=== PATIENT | male | born 1955 | race Caucasian/White ===

== ENCOUNTER 2020-03-14 12:15 | Outpatient (NON) | payer BC, SELFPAY ==
[2020-03-15 20:05] LABS: SARS-CoV-2 RNA PCR Positive
== END 2020-03-14 12:16 ==
PROVIDERS: PCP Family Medicine Adolescent Medicine; Visit Provider Family Medicine Adolescent Medicine
DX: U07.1 COVID-19 (principal)
CPT/HCPCS: 87635; C9803; U0003

== ENCOUNTER 2020-09-06 12:27 | Outpatient (CLI) | payer BC, SELFPAY ==
--- NOTE | ~2020-09-06 | US_ITS ---
EXAMINATION: US venous doppler [facility] EXAM DATE: 09/06/2020 13:06 INDICATION: Left lower extremity pain. TECHNIQUE: Multiple grayscale, color flow and Doppler images of the left lower extremity deep venous system were obtained and reviewed. Comparison is made to prior examination from 12/31/2018. FINDINGS: The left common femoral, femoral and profunda veins demonstrate normal color flow, respirat ory variation, augmentation and compressibility. Compressibility, color flow confirmed within the le ft popliteal, posterior tibial, peroneal, and greater saphenous veins. IMPRESSION: 1. No left lower extremity deep venous thrombosis. Reviewed, dictated and finalized at location B.
== END 2020-09-06 12:28 | disposition home or self-care (01) ==
PROVIDERS: PCP Family Medicine Adolescent Medicine; Visit Provider Family Medicine Adolescent Medicine
DX: M79.662 Pain in left lower leg (principal)
CPT/HCPCS: 93971

== ENCOUNTER 2022-02-10 10:20 | Outpatient (CLI) | payer MEDICARE, SELFPAY ==
--- NOTE | ~2022-02-10 | US_ITS ---
EXAMINATION: US soft tissue head and neck DATE: 02/10/2022 10:56 INDICATION: Localized enlarged lymph nodes. Right neck lump, tenderness, and fever. TECHNIQUE: Multiple grayscale and Doppler ultrasound images of the neck were obtained. COMPARISON: None FINDINGS: In the right submandibular gland, there is a 2.0 x 2.2 x 1.6 cm predominantly cystic mass w ith peripheral low level echoes. The right parotid gland is unremarkable. IMPRESSION: 1. 2.2 cm cystic mass in right submandibular gland. The differential diagnosis includes benign mixed tumor, Warthin tumor, abscess, and less likely primary malignancy. Reviewed, dictated and finalized at location A. PREVENTION ENGINEER IMPRESSION: 1. 2.2 cm cystic mass in right submandibular gland. The differential diagnosis includes benign mixed tumor, Warthin tumor, abscess, and less likely primary ma lignancy.
== END 2022-02-10 10:21 | disposition home or self-care (01) ==
PROVIDERS: PCP Family Medicine Adolescent Medicine; Visit Provider Physician Assistant
DX: R59.0 Localized enlarged lymph nodes (principal)
CPT/HCPCS: 76536

== ENCOUNTER 2023-12-17 01:57 | Day surgery (SDC) | payer MEDICARE, SELFPAY ==
[2023-08-10 15:24] VITALS: BMI 32.1
--- NOTE | 2023-08-10 15:44 | PC.NURSE ---
Spoke with patient and spouse regarding medication Eliquis. Pt. verbalizes understanding that the last dose of Eliquis is to be taken on 08/15/2023 and the Endoscopist will instruct them when to restart after the procedure.
--- NOTE | 2023-08-18 09:36 | SUR.PREOP ---
Patients Shoshana called this morning. She said that they forgot and Roman took his eliquis yesterday. I spoke with Dr Ramos and we informed the patient that it was his choice to continue with procedure or not. Patient was made aware and verbalized understanding that Richard may not be able to remove any polyps today and that he may have to repeat the procedure at a later date when eliquis was held appropriately.
--- NOTE | 2023-08-18 13:27 | SUR.PREOP ---
pt had called in earlier today to report he had accidentally taken his eliquis, dr langley was aware and wanted to let patient know if polyps were found, due to risk of bleeding would probably bring him back for polyp removal. at that time patient was agreeable. pt then registered and when brought back to preop area, pt and had concerns that there would be a cost to coming back for second procedure. also stated that if he has to prep again, it would just be easier to come back and have the diagnostic procedure done at the same time. dr langley did come and speak with patient and , they voiced understanding of his concerns with bleeding. they would prefer to come back for the procedure. dr langley currently has an opening for september 28 at 1400, will call dr langleys office once they get home and reschedule procedure.
[2023-12-09 14:53] VITALS: BMI 32.1
[2023-12-09 15:58] VITALS: BMI 32.1
--- NOTE | 2023-12-09 16:13 | PC.NURSE ---
Spoke with _PATIENT AND SPOUSE_ regarding medication _ELIQUIS_. Pt. AND SPOUSE verbalizes understanding that the last dose of _ELIQUIS_ is to be taken on _12/14/2023__ and the Endoscopist will instruct them when to restart after the procedure.
[2023-12-17 06:52] VITALS: BP 120/77; PULSE 54; RESP 20; TEMP 36.3; O2SAT 99
[2023-12-17] MEDS: LACTATED RINGERS 1,000 ML 150 ML IV CONT (07:02)
--- NOTE | 2023-12-17 07:16 | WPDANESEPPF ---
Anes - Initial Pre Proc Eval Procedure: Operation Date: 12/17/23 08:00 Proposed Procedures p Screening Colonoscopy - Sanya Ramos DO Operation Date: 12/17/23 08:00 Proposed Procedures p Screening Colonoscopy - Sanya Ramos DO Date/Time: 12/17/23 07:16 Surgeon: Sanya Ramos DO Pre Op Diagnosis: Screening for malignant neoplasm of colon Patient Data Age: 68 Gender: M Height: 1.8 m Weight: 101.6 kg Last Vital Signs Temp 36.3 C L 12/17/23 06:52 Pulse 54 L 12/17/23 06:52 Resp 20 12/17/23 06:52 BP 120/77 12/17/23 06:52 Pulse Ox 99 12/17/23 06:52 O2 Del Method Room Air 12/17/23 06:52 Allergies Allergy/AdvReac Type Severity Reaction Status Date / Time No Known Allergies Allergy Verified 12/17/23 06:47 Home Medications Medication Instructions Recorded Confirmed Type apixaban 2.5 mg tablet (Eliquis) 2.5 mg PO BID 07/11/21 12/17/23 History multivitamin 1 tablet PO DAILY 02/20/22 12/17/23 History magnesium aspartate HCl 400 mg PO BID 08/10/23 12/17/23 History lisinopril 20 mg tablet 20 mg PO DAILY #90 tabs 09/28/23 12/17/23 Rx calcium 1,200 mg PO BID 12/09/23 12/17/23 History cholecalciferol (vitamin D3) 125 125 mcg PO DAILY 12/09/23 12/17/23 History mcg (5,000 unit) tablet (Vitamin D3) Patient hx anesthesia problems: none Family hx anesthesia problems: none Results Review: All pre-operative results and documents have been reviewed as part of the pre-operative evaluation. [facility] Past Medical History Medical History Abnormal colonoscopy 03/22 3 polyps History of DVT (deep vein thrombosis) 2016 History of prostate cancer (2019) Surgical History Surgical History History of cholecystectomy 2014 History of prostatectomy 2019 History of total right knee replacement 2017 Family History Family History Mother Hypertension Breast cancer Father Hypertension Heart disease Malignant neoplasm of prostate Grandparent Diabetes mellitus Other Cancer Other Cancer Social History Social History Years smoked: 20 Smoking status: Never smoker Tobacco type: cigarettes and cigars Second hand tobacco smoke exposure: No Alcohol intake: current Drinks per week: 28 Alcohol use details: BEERS Substance use: never Substance use type: does not use Living arrangements: with family Occupation/Education: retired Gender identity (if verbalized by the patient): Male Sexual Orientation (if Verbalized by the Patient): Straight or Heterosexual Spiritual care concerns: No Agree to blood products: Yes Anes - Eval Final PreProcedure Day of Procedure 12/17/23 07:16 Patient weight: overweight Heart: regular rate and rhythm Lungs: clear to auscultation Airway: Mallampati scale class II Neurological: alert and oriented Last oral intake: >/= 8 hours ASA classification: III Emergent: no Anesthetic plan: proceed Anesthesia type and monitoring: general GIVS and standard monitoring Results Review: All pre-operative results and documents have been reviewed as part of the pre-operative evaluation. Informed Consent: The patient's anesthetic plan and its attendant risks and benefits were discussed with the patient/family/POA. Questions were solicited and answers provided to the satisfaction of the patient/family/POA.
--- NOTE | 2023-12-17 07:49 | PM.IMHP ---
H&P: HPI History of Present Illness Date/Time: 12/17/23 07:49 Chief Complaint: history of colon polyps Narrative: this is a 68-year-old man who presents for colonoscopy. His last colonoscopy was about 5 years ago. polyps were found at that time. He denies any first-degree relatives with family history of colon cancer. He denies any hematochezia or melena. He is on Eliquis and stop this 2 days ago. Review of Systems Review of Systems: All systems reviewed & are unremarkable except as noted in HPI and below Constitutional: Constitutional: Denies chills, Denies fever(s), Denies headache(s) and Denies weight loss Eyes: Eyes: Denies change in vision ENT: Denies dizziness, Denies headache(s), Denies neck mass and Denies throat swelling Cardiovascular: Cardiovascular: Denies chest pain, Denies lightheadedness and Denies dyspnea Respiratory: Respiratory: Denies cough, Denies dyspnea and Denies wheezing Gastrointestinal: Gastrointestinal: Denies abdominal pain, Denies change in bowel habits, Denies nausea and Denies vomiting Genitourinary: Genitourinary: Denies hematuria and Denies dysuria Musculoskeletal: Musculoskeletal: Reports as per HPI Integumentary/Breasts: Skin/Breast: Reports as per HPI Neurologic: Denies dizziness and Denies headache(s) Allergic/Immunologic: Allergic/Immunologic: Denies throat swelling and Denies wheezing PMFSH Past Medical History Medical History Abnormal colonoscopy 03/22 3 polyps History of DVT (deep vein thrombosis) 2016 History of prostate cancer (2019) Surgical History Surgical History History of cholecystectomy 2014 History of prostatectomy 2019 History of total right knee replacement 2017 Family History Family History Mother Hypertension Breast cancer Father Hypertension Heart disease Malignant neoplasm of prostate Grandparent Diabetes mellitus Other Cancer Other Cancer Social History Social History Years smoked: 20 Smoking status: Never smoker Tobacco type: cigarettes and cigars Second hand tobacco smoke exposure: No Alcohol intake: current Drinks per week: 28 Alcohol use details: BEERS Substance use: never Substance use type: does not use Living arrangements: with family Occupation/Education: retired Gender identity (if verbalized by the patient): Male Sexual Orientation (if Verbalized by the Patient): Straight or Heterosexual Spiritual care concerns: No Agree to blood products: Yes Meds Home Medications and Allergies Home Medications Medication Instructions Recorded Confirmed Type apixaban 2.5 mg tablet (Eliquis) 2.5 mg PO BID 07/11/21 12/17/23 History multivitamin 1 tablet PO DAILY 02/20/22 12/17/23 History magnesium aspartate HCl 400 mg PO BID 08/10/23 12/17/23 History lisinopril 20 mg tablet 20 mg PO DAILY #90 tabs 09/28/23 12/17/23 Rx calcium 1,200 mg PO BID 12/09/23 12/17/23 History cholecalciferol (vitamin D3) 125 125 mcg PO DAILY 12/09/23 12/17/23 History mcg (5,000 unit) tablet (Vitamin D3) Allergies Allergy/AdvReac Type Severity Reaction Status Date / Time No Known Allergies Allergy Verified 12/17/23 06:47 Vital Signs Vital Signs - 24 hr 12/17/23 06:52 Temperature 36.3 C L Pulse Rate 54 L Respiratory Rate 20 Blood Pressure 120/77 Pulse Oximetry 99 Oxygen Delivery Room Air Exam Const: General: no acute distress and alert Orientation/consciousness: patient oriented x3 HENMT: Head: normocephalic and atraumatic Ears: hearing grossly normal bilaterally Face/Nose/Sinus: Normal nares present Mouth: Yes Normal oral and palatal mucosa present Eyes: Periorbital: periorbital findings normal Sclera: sclerae normal EOM: EOMs intact lisa
[2023-12-17 08:32] VITALS: BP 111/68; PULSE 50; RESP 12; O2SAT 98
[2023-12-17 08:42] VITALS: BP 103/61; PULSE 48; RESP 15; O2SAT 98
--- NOTE | 2023-12-17 08:44 | SUR.PHASEII ---
Clarified eliquis restart date with Dr. Ramos. Per MD, patient to restart eliquis 12/18. Patient/family notified and aware.
[2023-12-17 08:52] VITALS: BP 119/71; PULSE 56; RESP 23; O2SAT 100
== END 2023-12-17 09:05 | disposition home or self-care (01) ==
PROVIDERS: PCP Family Medicine Adolescent Medicine; Visit Provider Surgery
PROC: 0DJD8ZZ Inspection of Lower Intestinal Tract, Via Natural or Artificial Opening Endoscopic (ICD-10-PCS; CPT 45378; principal; 2023-12-17 08:00)
DX: Z12.11 Encounter for screening for malignant neoplasm of colon (principal); D12.3 Benign neoplasm of transverse colon; D12.5 Benign neoplasm of sigmoid colon; K57.30 Diverticulosis of large intestine without perforation or abscess without bleeding; Z79.01 Long term (current) use of anticoagulants; Z98.890 Other specified postprocedural states; Z96.651 Presence of right artificial knee joint; Z90.49 Acquired absence of other specified parts of digestive tract; Z85.46 Personal history of malignant neoplasm of prostate; Z86.718 Personal history of other venous thrombosis and embolism; Z80.3 Family history of malignant neoplasm of breast; Z80.42 Family history of malignant neoplasm of prostate; Z82.49 Family history of ischemic heart disease and other diseases of the circulatory system
CPT/HCPCS: 45380; 88305; 99211; G0463; J2704; J7120

== ENCOUNTER 2024-08-18 11:21 | Outpatient (CLI) | payer MEDICARE, SELFPAY ==
--- NOTE | ~2024-08-18 | US_ITS ---
EXAMINATION: US venous doppler [facility] DATE: 08/18/2024 11:59 INDICATION: Left lower leg pain TECHNIQUE: Grayscale ultrasound images without and with compression and Doppler ultrasound images of the left lower extremity veins were obtained. COMPARISON: None. FINDINGS: The visualized portions of left common femoral vein, profunda (deep) femoral vein, femoral vein, popl iteal vein, peroneal veins, posterior tibial veins, gastrocnemius vein and greater saphenous vein out flow are patent. IMPRESSION: 1. No deep venous thrombosis in the left lower limb. Reviewed, dictated and finalized at location A.
--- OUTSIDE RECORDS SUMMARY | 2024-08-18 11:25 | XMS_ITS ---
Author Organization [facility] al Address [address] [place] [address] Care Team Providers Care Senior Energy Analyst Name Role Phone Angel La MD Primary Care Prov ider Active Problems Problem Noted Date Diagnosed Date Primary osteoarthritis of left knee 06/02/2024 Alteration in skin integrity related to surgical incision 12/18/2022 Osteoarthritis of left knee, unspecified osteoarthritis type 07/08/2022 Deep vein thrombosis (DVT) of lower extremity Current use of correction anticoagulation 021 Prostate cancer 05/24/2019 Overview (05/24/2019): Added automatically from request for surgery [id number] History of knee surgery 06/17/2016 Medication therapy continued 03/26/2016 DVT (deep venous thrombosis) 01/23/2016 Knee pain 02/05/2015 Osteoarthritis of knee 09/05/2010 Current Treatment and Therapy Plans No current plan information found. Past Treatment and Therapy Plans No past plan information found. Lifetime Dose Tracking * Chemical Lifetime Dose Automatic Entry Manual Entr y Fluoro Time 1.6 minutes 1.6 minutes 0 minutes Air kerma at the reference point (Ka,r) 187.1 mGy 1 87.1 mGy 0 mGy DLP 1,912 mGycm 1,912 mGycm 0 mGycm
--- OUTSIDE RECORDS SUMMARY | 2024-08-18 11:25 | XMS_ITS | Encounter Summary ---
Author Organization [facility] Address [address] [place] [address] Phone Care Team Providers Care Carrier Blower Name Role Phone Angel La MD Primary Care Prov ider Encounter Details Date Type Department Care Team (Latest Contact Info) Description 09/26/2016 Orders Only [facility] CONVERSION Scanning, Provider Social History Tobacco Use Types Packs/Day Years Used Date Smoking Tobacco: Never Assessed Sex and Gender Information Value Date Recorded Sex Assigned at Not on file Legal Sex Male 9:30 AM FINGERPRINTER Gender Identity Male 06/14/2019 9:44 AM CDT Sexual Orientation Straight 06/14/2019 9: 44 AM CDT documented as of this encounter Plan of Treatment Not on file documented as of this encounter Procedures Procedure Name Priority Date/Time Associated Diagnosis Comments VASCULAR LABORATORY REPORT 09/26/2016 1:20 AM CDT documented in this encounter Results * VASCULAR LABORATORY REPORT (09/26/2016 1:20 AM CDT) Anatomical Region Laterality Modality Ultrasound us Provider Scanning CV VASCULAR PROCEDURES Final R esult documented in this encounter Visit Diagnoses Not on filedocumented in this encounter Care Teams Carrier Blower Relationship Specialty Start Date End Date Angel La MD [address] [place] [address] PCP - General 05/26/16 documented as of this encounter
--- OUTSIDE RECORDS SUMMARY | 2024-08-18 11:25 | XMS_ITS | Encounter Summary ---
Author Organization [facility] Address [address] [place] [address] Phone Care Team Providers Care Small Business Representative Name Role Phone Angel La MD Primary Care Prov ider Encounter Details Date Type Department Care Team (Latest Contact Info) Description 02/20/2017 Orders Only [facility] CONVERSION Scanning, Provider Social History Tobacco Use Types Packs/Day Years Used Date Smoking Tobacco: Former Sex and Gender Information Value Date Recorded Sex Assigned at Not on file Legal Sex Male 9:30 AM PLASTICS DESIGN ENGINEER Gender Identity Male 06/14/2019 9:44 AM CDT Sexual Orientation Straight 06/14/2019 9: 44 AM CDT documented as of this encounter Plan of Treatment Not on file documented as of this encounter Procedures Procedure Name Priority Date/Time Associated Diagnosis Comments VASCULAR LABORATORY REPORT 02/20/2017 12:42 PM PLASTICS DESIGN ENGINEER documented in this encounter Results * VASCULAR LABORATORY REPORT (02/20/2017 12:42 PM PLASTICS DESIGN ENGINEER) Anatomical Region Laterality Modality Ultrasound us Provider Scanning CV VASCULAR PROCEDURES Final R esult documented in this encounter Visit Diagnoses Not on filedocumented in this encounter Care Teams Small Business Representative Relationship Specialty Start Date End Date Angel La MD [address] [place] [id number] PCP - General 05/26/16 documented as of this encounter
--- OUTSIDE RECORDS SUMMARY | 2024-08-18 11:26 | XMS_ITS | Clinical Summary ---
Author Organization [facility] Address [address], [address] [address] Phone Care Team Providers Care Sample Tester Name Role Phone Angel La MD Primary Care Provider + Jamil Zuniga MD Unavailable [phone] Medications polyethylene glycol (MIRALAX) Powder Mix the entire bottle with 64 oz of a clear liquid. Use as directed by the office for colonoscopy prep. 255 g 7 Active Immunizations Immunization Administration Dates Next Due Covid-19, Mrna, Lnp-s, PF, 1 00 mcg/0.5 mL Dose (Moderna) 02/08/2021 Social History Tobacco Use Types Packs/Day Years Used Date Smoking Tobacco: Never Assessed Sex and Gender Information Value Date Recorded Sex Assigned at Not on file Legal Sex Male 4:45 PM ACCOUNT AUDITOR Gender Identity Not on file Sexual Orientation Not on file Plan of Treatment Health Maintenance Due Date Last Done Comments Hepatitis C Virus (HCV) Screening 1955 TdaP Immunization 1955 Cologuard 02/02/2006 Immunochemical Fecal Occult Blood 02/02/2006 Pneumococcal Immunization (5 0+ years) (1 of 1 - PCV) 02/02/2006 Zoster Immunization (1 of 2) 02/02/2006 Colonoscopy 03/17/2020 03/17/2017 Colorectal Cancer Screening 03/17/2020 Influenza Immunization (#1) 2023 SARS-COV-2 Immunization ( season) 2023 02/08/2021, 06/12/2020, 05/15/2020 Respiratory Syncytial Virus (RSV) Immunization (Adult) (1 - 1-dose 75+ series) 02/02/2031 03/17/2017 Hepatitis B Immunization Aged Out No longer eligible based on patient's age to complete this topic Meningococcal Immunization (ACWY) Aged Out No longer eligible b ased on patient's age to complete this topic Rotavirus Immunization Aged Out No lo nger eligible based on patient's age to complete this topic Procedures Procedure Name Priority Date/Time Associated Diagnosis Comments COLONOSCOPY Routine 03/17/2017 from Last 3 Months or Most Recently Relevant to Health Maintenance Results * COLONOSCOPY (03/17/2017) Jamil Zuniga MD PROCEDURE/MINOR SURGICA L ORDERABLES Final Result from Last 3 Months or Most Recently Relevant to Health Maintenance Insurance [facility] Care Teams Sample Tester Relationship Specialty Start Date End Date Angel La MD [address] [place] [address] PCP - General Family Medicine 02/20/17 RagJamil claudio MD [address] [place] [address] Consulting Physician Gastroenterology 04/02/17
--- OUTSIDE RECORDS SUMMARY | 2024-08-18 11:26 | XMS_ITS | Encounter Summary ---
Author Organization [facility] Address [address] [place] [address] Phone Care Team Providers Care Leather Stamper Name Role Phone Angel La MD Primary Care Prov ider Encounter Details Date Type Department Care Team (Latest Contact Info) Description 07/20/2017 Orders Only [facility] CONVERSION Scanning, Provider Social History Tobacco Use Types Packs/Day Years Used Date Smoking Tobacco: Former Sex and Gender Information Value Date Recorded Sex Assigned at Not on file Legal Sex Male 9:30 AM ENGRAVER BLOCK Gender Identity Male 06/14/2019 9:44 AM CDT Sexual Orientation Straight 06/14/2019 9: 44 AM CDT documented as of this encounter Plan of Treatment Not on file documented as of this encounter Procedures Procedure Name Priority Date/Time Associated Diagnosis Comments VASCULAR LABORATORY REPORT 07/20/2017 10:42 AM CDT documented in this encounter Results * VASCULAR LABORATORY REPORT (07/20/2017 10:42 AM CDT) Anatomical Region Laterality Modality Ultrasound us Provider Scanning CV VASCULAR PROCEDURES Final R esult documented in this encounter Visit Diagnoses Not on filedocumented in this encounter Care Teams Leather Stamper Relationship Specialty Start Date End Date Angel La MD [address] [place] [id number] PCP - General 05/26/16 documented as of this encounter
--- OUTSIDE RECORDS SUMMARY | 2024-08-18 11:26 | XMS_ITS | Referral Summary ---
Author Organization [facility] al Address [address] [place] [address] Care Team Providers Care Shark Biologist Name Role Phone Angel La MD Primary Care Prov ider Encounters Date Type Department Care Team Description 08/12/2024 Orders Only [facility] [address] [place] [address] Office [facility] [address] [place] [address] Giovani Sanchez MD Prophylactic antibiotic 07/27/2024 Telephone [facility] [address] [place] [address] Floor 6 [place] [address] Nadege Brewer RN 07/25/2024 3:30 PM CDT - 07/25/2024 11:59 PM CDT Hospital Encounter [facility] [address] [place] [address] [address] [place] [address] Aftercare following left knee joint replacement surgery Discharge Disposition: Discharge to home or self care 07/25/2024 3:50 PM CDT Office Visit [facility] [address] [place] [address] Office [address] [place] [phone] Giovani Sanchez MD Aftercare following left knee joint replacement surgery (Primary Dx) 07/04/2024 1:00 PM CDT - 07/04/2024 11:59 PM CDT Hospital Encounter [facility] [address] [place] [address] [address] [place] [address] Aftercare following left knee joint replacement surgery Discharge Disposition: Discharge to home or self care 07/04/2024 1:20 PM CDT Office Visit [facility] [address] [place] [address] Office Building [address] [place] [address] Giovani Sanchez MD Aftercare following left knee joint replacement surgery (Primary Dx); Surgical follow-up care 06/02/2024 12:02 PM MANAGER EDUCATION - 06/03/2024 10:00 AM [facility] Hospital Encounter [facility] [id number] [place] [address] Giovani Sanchez MD Primary osteoarthritis of left knee (Primary Dx); Chronic pain of left knee Discharge Disposition: Discharge to home or self care 06/02/2024 3:35 PM MANAGER EDUCATION - 06/02/2024 5:15 PM [facility] Surgery [facility] Operating Room [address] [place] [address] Giovani Sanchez MD ARTHROPLASTY TOTAL KNEE - DEPUY 06/02/2024 2:15 PM MANAGER EDUCATION Anesthesia Event [facility] Operating Room [address] [place] [address] Kian Burroughs MD Khodamoradi, Shahrdad, MD 05/31/2024 8:30 AM MANAGER EDUCATION Pre-Admission Testing [facility] ([facility]) [address] [place] [id number] Preoperative testing (Primary Dx); Primary osteoarthritis of left knee; Disorder of cartilage, unspecified 05/24/2024 Orders Only [facility] [address] [place] [address] Office [facility] [address] [place] [phone] Giovani Sanchez MD from Last 3 Months Allergies No known active allergies Medications lisinopriL (PRINIVIL,ZESTRIL ) 20 mg tabletIndications :hypertension Take 1 tablet (20 mg total) by mouth every morning 06/12/19 21 Active Eliquis 2.5 mg tabletIndications :Deep vein thrombosis (DVT) of lower extremity, unspecified chronicity, unspecified laterality, unspecified vein (HCC) TAKE 1 TABLET BY MOUTH EVERY 12 HOURS 60 tablet 11 01/03/20 21 Active Additional Information Patient taking differently: 2.5 mg oral 2 times daily, Indications: Venous Thrombosis, HX DVT LLE 2015, Informant: Self, Spouse/Significant Other, Reported on 06/02/2024 calcium carbonate (TUMS ORAL)Indications: dyspepsia Take 2 tablet/chew tab by mouth as needed (dyspepsia) Active cholecalciferol (VITAMIN D-3) 5,000 unit tabletIndications :Vitamin D Deficiency Take 1 tablet (5,000 Units total) by mouth every morning Active peg 400-propylene glycol (SYSTANE) 0.4-0.3 % ophthalmic solutionIndicatio ns:Dry Eye Administer 1 drop into both eyes 2 (two) times a day Active bismuth subsalicylate 525 mg/15 mL suspensionIndicat ions:GI UPSET Take 1 Capful by mouth as needed (GI UPSET) Active UNABLE TO FINDIndications:a nxiety Take 1 each by mouth as needed (Anxiety) Med Name: CBD oil Active acetaminophen (TYLENOL) 500 mg tablet Take 2 tablets (1,000 mg total) by mouth every 8 (eight) hours 90 tablet 06/03/19 25 Active senna-docusate (PERICOLACE) 8.6-50 mg Take 2 tablets by mouth 2 (two) times a day May increase to 4 tablets twice daily if needed. HOLD medication for diarrhea. 80 tablet 1 06/03/[address] (PROTONIX) 20 mg EC tablet Take 1 tablet (20 mg total) by mouth daily 30 tablet 06/03/19 25 Active meloxicam (MOBIC) 7.5 mg tablet Take 1 tablet (7.5 mg total) by mouth daily 30 tablet 06/03/19 25 Active oxyCODONE (ROXICODONE) 5 mg immediate release tabletIndications :Pain Take 1 tablet (5 mg total) by mouth every 4 (four) hours as needed for pain (breakthrough) 30 tablet 06/10/19 25 Active traMADoL (ULTRAM) 50 mg tabletIndications :Postoperative pain Take 1 tablet (50 mg total) by mouth every 8 (eight) hours as needed for pain 42 tablet 07/15/19 25 Active predniSONE (DELTASONE) 5 mg tabletIndications :Chronic pain of left knee Take 1 tablet (5 mg) by mouth daily 30 tablet 08/02/19 25 025 Active amoxicillin 500 mg tablet/capsuleInd ications:Prophyla xis, Medical TAKE 4 PILL 1 HOUR BEFORE DENTAL APPOINTMENT. 4 tablet/caps ule 2 08/13/19 25 Active amoxicillin 500 mg tablet/capsuleInd ications:Prophyla xis, Medical TAKE 4 PILL 1 HOUR BEFORE DENTAL APPOINTMENT. 4 tablet/caps ule 2 07/27/19 24 025 Discontinu ed(Reorder ) methylPREDNISolon e (MEDROL DOSEPACK) 4 mg Dosepack Take as directed on package 1 packet 07/26/19 25 025 Active Problems Problem Noted Date Diagnosed Date Primary osteoarthritis of left knee 06/02/2024 Alteration in skin integrity related to surgical incision 12/18/2022 Osteoarthritis of left knee, unspecified osteoarthritis type 07/08/2022 Deep vein thrombosis (DVT) of lower extremity Current use of meterman anticoagulation 021 Prostate cancer 05/24/2019 Overview (05/24/2019): Added automatically from request for surgery [id number] History of knee surgery 06/17/2016 Medication therapy continued 03/26/2016 DVT (deep venous thrombosis) 01/23/2016 Knee pain 02/05/2015 Osteoarthritis of knee 09/05/2010 Immunizations Immunization Administration Dates Next Due Influenza, Unspecified 12/14/2023 Moderna SARS-CoV-2 Monovalent Vaccination (12+ Y RS) 06/12/2020,05/15/2020 ZOSTER Recombinant 07/24/2023 Social History Tobacco Use Types Packs/Day Years Used Date Smoking Tobacco: Former Cigars 1 - 1994 Passive Smoke Exposure: Never Smokeless Tobacco: Former Chew Quit: 1988 Comments:1 cigar a day. Alcohol Use Standard Drinks/Week Comments Yes 21 (1 standard drink = 0.6 oz pu re alcohol) AUDIT-C Answer Date Recorded Q1: How often do you have a drink containing alcohol? 4 or more times a week 05/31/2024 Q2: How many drinks containi ng alcohol do you have on a typical day when you are drinking? 3 or 4 Q3: How often do you have si x or more drinks on one occasion? Monthly 05/31/2024 Personal Safety Answer Date Recorded Have you ever been in or are you currently in a harmful physical or emotional relationship or is someone making you feel afraid or unsafe? Denies 06/02/2024 Sex and Gender Information Value Date Recorded Sex Assigned at Not on file Legal Sex Male 9:30 AM MANAGER EDUCATION Gender Identity Male 06/14/2019 9:44 AM CDT Sexual Orientation Straight 06/14/2019 9: 44 AM CDT Last Filed Vital Signs Vital Sign Reading Time Taken Comments Blood Pressure 127/54 06/03/2024 7:43 AM MANAGER EDUCATION Pulse 62 06/03/2024 7:43 AM MANAGER EDUCATION Temperature 36.8 C (98.3 F) 06/03/2024 7:43 AM MANAGER EDUCATION Respiratory Rate 16 06/03/2024 7:43 AM MANAGER EDUCATION Oxygen Saturation 95% 06/03/2024 7:43 AM MANAGER EDUCATION Inhaled Oxygen Concentration - - Weight 108.5 kg (239 lb 3.2 oz) 06/02/2024 1:00 PM MANAGER EDUCATION Height 180.3 cm (5' 11 ) 06/02/2024 1:00 PM MANAGER EDUCATION Body Mass Index 33.36 06/02/2024 1:00 PM MANAGER EDUCATION Plan of Treatment Not on file Medical Devices Implanted Type Area Building Supervisor Device Identifier Shelf Expiration Date Model / Serial / Lot Knee Replacement Right: Knee [employer] Smartset Medium Viscosity Cement 40gm Bone Sterile 3122-040 - [id number] Implanted:Qty: 1 on 07/08/2022 by Giovani Sanchez MD at [facility] Left: Knee [employer] 12/05/2023 3122-040 / / [id number] [employer] Insert Tibial Knee Fixed Lm Posterior Stabilized Attune 7mm Size 7 Polyethylene [id number] - [id number] Implanted:Qty: 1 on 06/02/2024 at [facility] Left: Knee [employer] 04/05/2032 [id number] / / [id number] [employer] Smartset Medium Viscosity Cement 40gm Bone Gentamicin [id number] - [id number] Implanted:Qty: 1 on 06/02/2024 at [facility] Left: Knee [employer] 11/03/2025 [id number] / / [id number] [employer] Smartset Medium Viscosity Cement 40gm Bone Sterile 3122-040 - [id number] Implanted:Qty: 1 on 06/02/2024 at [facility] Left: Knee [employer] 10/03/2025 3122-040 / / [id number] [employer] Attune S+ Cement Fix Bearing Knee 8 Baseplate Tibial [id number] - [id number] Implanted:Qty: 1 on 06/02/2024 at [facility] Left: Knee [employer] 03/05/2034 [id number] / / [id number] [employer] Attune Cemented Cruciate Retaining Knee Left 7 Component Femoral [id number] - [id number] Implanted:Qty: 1 on 06/02/2024 at [facility] Left: Knee [employer] 11/03/2032 [id number] / / [id number] Explanted Type Area Building Supervisor Device Identifier Shelf Expiration Date Model / Serial / Lot [employer] 4mm 110mm Pin Fixation Sterile [id number] - [id number] Explanted:Qty: 1 on 07/08/2022 by Giovani Sanchez MD at [facility] Left: Knee [employer] [id number] 05/05/2027 [id number] / / [id number] Description:NOT AN IMPLANT, PROVISIONAL USE ONLY [employer] 4mm 140mm Knee Straight Pin Fixation Sterile [id number] - [id number] Explanted:Qty: 1 on 07/08/2022 at [facility] Left: Knee [employer] [id number] 04/25/2027 [id number] / / [id number] Description:NOT AN IMPLANT, PROVISIONAL USE ONLY [employer] Insert Peter Tibial X3 Onlay Size 5 X 8mm Unicompartmental Knee Strl 870135-4-T - [id number] Implanted:Qty: 1 on 07/08/2022 by Giovani Sanchez MD at [facility] Explanted:Qty: 1 on 06/02/2024 by Giovani Sanchez MD at [facility] Left: Knee [employer] [id number] 05/08/2027 465418-4- [id number] / / [id number] [employer] Cmpnt Fem 5 Std Knee Condyle Left Medial Right Lat [id number] - [id number] - [id number] Implanted:Qty: 1 on 07/08/2022 by Giovani Sanchez MD at [facility] Explanted:Qty: 1 on 06/02/2024 by Giovani Sancehz MD at [facility] Left: Knee [employer] [id number] 01/31/2027 [id number] / [id number] / [id number] [employer] Bsplt Tibial 5 Knee Left Medial Right Lat Mck System [id number] - [id number] - [id number] Implanted:Qty: 1 on 07/08/2022 by Giovani Sanchez MD at [facility] Explanted:Qty: 1 on 06/02/2024 by Giovani Sanchez MD at [facility] Left: Knee [employer] [id number] 03/27/2027 [id number] / [id number] Procedures Procedure Name Priority Date/Time Associated Diagnosis Comments XR KNEE LEFT 3 VIEWS Schedule Routine, Read Routine (OP Routine) 07/25/2024 3:59 PM CDT Aftercare following left knee joint replacement surgery XR KNEE LEFT 4 OR MORE VIEWS Schedule Routine, Read Routine (OP Routine) 07/04/2024 1:39 PM CDT Aftercare following left knee joint replacement surgery XR KNEE LEFT 1 OR 2 VIEWS ED Urgent/IP Urgent 06/02/2024 4:13 PM MANAGER EDUCATION PREPARE RBC Timed 06/02/2024 3:28 PM MANAGER EDUCATION ARTHROPLASTY TOTAL KNEE - DEPUY 06/02/2024 2:14 PM MANAGER EDUCATION Primary osteoarthritis of left knee PA AN PROCEDURE PLACEHOLDER Routine 06/02/2024 2:08 PM MANAGER EDUCATION PA AN PROCEDURE PLACEHOLDER Routine 06/02/2024 2:07 PM MANAGER EDUCATION PA AN PROCEDURE PLACEHOLDER Routine 06/02/2024 2:07 PM MANAGER EDUCATION PA AN PROCEDURE PLACEHOLDER Routine 06/02/2024 2:07 PM MANAGER EDUCATION PA AN PROCEDURE PLACEHOLDER Routine 06/02/2024 2:07 PM MANAGER EDUCATION CROSSMATCH STAT 06/02/2024 1:03 PM MANAGER EDUCATION ANTIBODY SCREEN STAT 06/02/2024 1:03 PM MANAGER EDUCATION ABO/RH STAT 06/02/2024 1:03 PM MANAGER EDUCATION TYPE AND SCREEN STAT 06/02/2024 1:03 PM MANAGER EDUCATION EGFR Routine 05/31/2024 10:03 AM MANAGER EDUCATION Primary osteoarthritis of left knee DIFFERENTIAL AUTO Routine 05/31/2024 10:03 AM MANAGER EDUCATION Preoperative testing VITAMIN D 25 HYDROXY Routine 05/31/2024 10:03 AM MANAGER EDUCATION Primary osteoarthritis of left knee Disorder of cartilage, unspecified COMPREHENSIVE METABOLIC PANEL Routine 05/31/2024 10:03 AM MANAGER EDUCATION Primary osteoarthritis of left knee CBC WITH AUTO DIFFERENTIAL Routine 05/31/2024 10:03 AM MANAGER EDUCATION Preoperative testing TYPE AND SCREEN 14 DAY Routine 05/31/2024 10:03 AM MANAGER EDUCATION Preoperative testing PSA SCREEN Routine 11/04/2022 7:55 AM CDT Malignant neoplasm of prostate (HCC) from Last 3 Months or Most Recently Relevant to Health Maintenance Results * XR Knee Left 3 Views (07/25/2024 3:59 PM CDT) Anatomical Region Laterality Modality Lower Extremities, Knee Left Computed Radiography 07/25/2024 4:09 PM CDT Impressions 07/25/2024 4:09 PM CDT 2 component left knee arthroplasty in near-anatomic position. Electronically signed by: Rodolfo Gomez M.D. Narrative 07/25/2024 4:09 PM CDT EXAMINATION: XR KNEE LEFT 3 VIEWS HISTORY: Left knee osteoarthritis FINDINGS: 3 views of the left knee were performed with comparison made to 07/04/2024. There is a 2 component knee arthroplasty in near-anatomic position. There is no periprosthetic lucency or fracture. There is an effusion and anterior soft tissue swelling. Procedure Note Rodolfo Gomez MD PhD - 07/25/2024 EXAMINATION: XR KNEE LEFT 3 VIEWS HISTORY: Left knee osteoarthritis FINDINGS: 3 views of the left knee were performed with comparison made to 07/04/2024. There is a 2 component knee arthroplasty in near-anatomic position. There is no periprosthetic lucency or fracture. There is an effusion and anterior soft tissue swelling. IMPRESSION: 2 component left knee arthroplasty in near-anatomic position. Electronically signed by: Rodolfo Gomez M.D. Giovani Sanchez MD IMG XR PROCEDURES Final R esult * XR Knee Left 4 or More Views (07/04/2024 1:39 PM CDT) Anatomical Region Laterality Modality Lower Extremities, Knee Left Computed Radiography 07/04/2024 2:52 PM CDT Impressions 07/04/2024 2:52 PM CDT 2 component left knee arthroplasty in unchanged, near-anatomic position with mild mechanical varus. Electronically signed by: Jhony Torres M.D. Narrative 07/04/2024 2:52 PM CDT EXAMINATION: XR KNEE LEFT 4 OR MORE VIEWS HISTORY: Left knee arthroplasty follow COMPARISON: 06/02/2023 FINDINGS: Again seen is a left pneumonia is seen in unchanged, near anatomic position. Soft tissue gas has resolved. No periprosthetic fracture component migration. There is diffuse soft tissue swelling and a knee effusion. On the right, there is a total knee arthropathy. Mechanical varus on the left. Neutral mechanical axis on the right. Procedure Note Jhony Torres MD - 07/04/2024 EXAMINATION: XR KNEE LEFT 4 OR MORE VIEWS HISTORY: Left knee arthroplasty follow COMPARISON: 06/02/2023 FINDINGS: Again seen is a left pneumonia is seen in unchanged, near anatomic position. Soft tissue gas has resolved. No periprosthetic fracture component migration. There is diffuse soft tissue swelling and a knee effusion. On the right, there is a total knee arthropathy. Mechanical varus on the left. Neutral mechanical axis on the right. IMPRESSION: 2 component left knee arthroplasty in unchanged, near-anatomic position with mild mechanical varus. Electronically signed by: Jhony Torres M.D. Giovani Sanchez MD IMG XR PROCEDURES Final R esult * XR Knee Left 1 or 2 View (06/02/2024 4:13 PM MANAGER EDUCATION) Anatomical Region Laterality Modality Lower Extremities, Knee Left Computed Radiography 06/02/2024 4:21 PM MANAGER EDUCATION Impressions 06/02/2024 4:21 PM MANAGER EDUCATION New two-component left knee arthroplasty in expected position. Electronically signed by: David Nair 06/02/2024 4:21 PM MANAGER EDUCATION EXAMINATION: XR KNEE LEFT 1 OR 2 VIEWS HISTORY: postoperative care COMPARISON: Radiographs 05/16/2024 FINDINGS: Interval postoperative changes of two-component knee arthroplasty placement. Intact hardware in expected position. Postoperative soft tissue and intra-articular gas. No displaced fracture. Procedure Note Edu Martin DO - 06/02/2024 EXAMINATION: XR KNEE LEFT 1 OR 2 VIEWS HISTORY: postoperative care COMPARISON: Radiographs 05/16/2024 FINDINGS: Interval postoperative changes of two-component knee arthroplasty placement. Intact hardware in expected position. Postoperative soft tissue and intra-articular gas. No displaced fracture. IMPRESSION: New two-component left knee arthroplasty in expected position. Electronically signed by: Edu Martin D.O. us Colin Abad MD IMG XR PROCEDURES Fi nal Result * Prepare RBC: 1 Units (06/02/2024 3:28 PM MANAGER EDUCATION) Units requested 1 Units requested Ready BRANDT GAGNON Blood 06/02/2024 3:28 PM MANAGER EDUCATION 06/02/2024 3:28 PM MANAGER EDUCATION Narrative BRANDT GAGNON - 06/02/2024 3:28 PM MANAGER EDUCATION Specify Procedure:->TKA revision Are special requirements needed? (All products are leukoreduced and CMV- safe)->No us Michele Begum NP BLOOD BANK PRODUCT ORDER FRENCH Final Result BRANDT HENNINGCH [id number] [facility]. [place] [address] * PA AN PROCEDURE PLACEHOLDER (06/02/2024 2:08 PM MANAGER EDUCATION) Narrative Kian Burroughs MD - 06/02/2024 2:08 PM MANAGER EDUCATION Kian Burroughs MD 06/02/2024 2:08 PM Peripheral Block Patient location during procedure: pre-op holding Reason for block: post-op pain management per surgeon request Ultrasound image in chart or stored: yes Block type: single shot Laterality: left Block type: vastus intermedius nerve block Procedure prep: Preprocedure checklist: patient identified, procedure contraindications assessed, site marked, procedure consent, surgical consent, IV checked, risks, benefits and alternatives discussed, monitors and equipment checked and timeout performed Patient position: supine Procedure performed while patient: sedate with meaningful contact Monitoring: oximetry, ECG and blood pressure Supplemental O2: nasal cannula Prep solution: chlorhexidine/alcohol PPE: provider hat/mask and sterile probe cover and gel Peripheral nerve block: Technique: ultrasound guided Needle type: short-bevel and echogenic Needle gauge: 21 G Needle length: 80 mm Injection assessment: injection made incrementally with constant monitoring, negative aspiration for heme, no paresthesias noted, normal resistance to injection and see flowsheet for medication details Assessment: Block success: full evaluation pending Events: patient tolerated procedure well with no complications us Kian Burroughs MD ANESTHESIA ORDERABLES Adeola l Result * PA AN PROCEDURE PLACEHOLDER (06/02/2024 2:07 PM MANAGER EDUCATION) Narrative Kian Burroughs MD - 06/02/2024 2:07 PM MANAGER EDUCATION Kian Burroughs MD 06/02/2024 2:07 PM Peripheral Block Patient location during procedure: pre-op holding Reason for block: post-op pain management per surgeon request Ultrasound image in chart or stored: yes Block type: single shot Laterality: left Block type: genicular nerve block Staff: Placed by: Anesthesiologist: Kian Burroughs MD Procedure prep: Preprocedure checklist: patient identified, procedure contraindications assessed, site marked, procedure consent, surgical consent, IV checked, risks, benefits and alternatives discussed, monitors and equipment checked and timeout performed Patient position: supine Procedure performed while patient: sedate with meaningful contact Monitoring: oximetry, ECG and blood pressure Supplemental O2: nasal cannula Prep solution: chlorhexidine/alcohol PPE: provider hat/mask and sterile probe cover and gel Peripheral nerve block: Technique: ultrasound guided Needle type: short-bevel and echogenic Needle gauge: 21 G Needle length: 80 mm Injection assessment: injection made incrementally with constant monitoring, negative aspiration for heme, no paresthesias noted, normal resistance to injection and see flowsheet for medication details Assessment: Block success: full evaluation pending Events: patient tolerated procedure well with no complications Additional comments: (Superior Medial, Superior Lateral, Inferior Medial genicular nerves) Kian Burroughs MD ANESTHESIA ORDERABLES Adeola l Result * PA AN PROCEDURE PLACEHOLDER (06/02/2024 2:07 PM MANAGER EDUCATION) Narrative Kian Burroughs MD - 06/02/2024 2:07 PM MANAGER EDUCATION Kian Burroughs MD 06/02/2024 2:07 PM Peripheral Block Patient location during procedure: pre-op holding Reason for block: post-op pain management per surgeon request Ultrasound image in chart or stored: yes Block type: single shot Laterality: left Block type: IPACK Staff: Placed by: Anesthesiologist: Kian Burroughs MD Procedure prep: Preprocedure checklist: patient identified, procedure contraindications assessed, site marked, procedure consent, surgical consent, IV checked, risks, benefits and alternatives discussed, monitors and equipment checked and timeout performed Patient position: supine Procedure performed while patient: sedate with meaningful contact Monitoring: oximetry, ECG and blood pressure Supplemental O2: nasal cannula Prep solution: chlorhexidine/alcohol PPE: provider hat/mask and sterile probe cover and gel Peripheral nerve block: Technique: ultrasound guided Needle type: short-bevel and echogenic Needle gauge: 21 G Needle length: 80 mm Injection assessment: injection made incrementally with constant monitoring, negative aspiration for heme, no paresthesias noted, normal resistance to injection and see flowsheet for medication details Assessment: Block success: full evaluation pending Events: patient tolerated procedure well with no complications Kian Burroughs MD ANESTHESIA ORDERABLES Adeola l Result * PA AN PROCEDURE PLACEHOLDER (06/02/2024 2:07 PM MANAGER EDUCATION) Narrative Kian Burroughs MD - 06/02/2024 2:07 PM MANAGER EDUCATION Kian Burroughs MD 06/02/2024 2:07 PM Peripheral Block Patient location during procedure: pre-op holding Reason for block: post-op pain management per surgeon request Ultrasound image in chart or stored: yes Block type: single shot Laterality: left Block type: saphenous nerve block - subsartorial approach Staff: Placed by: Anesthesiologist: Kian Burroughs MD Procedure prep: Preprocedure checklist: patient identified, procedure contraindications assessed, site marked, procedure consent, surgical consent, IV checked, risks, benefits and alternatives discussed, monitors and equipment checked and timeout performed Patient position: supine Procedure performed while patient: sedate with meaningful contact Monitoring: ECG, blood pressure and oximetry Supplemental O2: nasal cannula Prep solution: chlorhexidine/alcohol PPE: provider hat/mask and sterile probe cover and gel Peripheral nerve block: Technique: ultrasound guided Needle type: short-bevel and echogenic Needle gauge: 21 G Needle length: 80 mm Injection assessment: injection made incrementally with constant monitoring, local visualized surrounding nerve on ultrasound, negative aspiration for heme, no paresthesias noted, normal resistance to injection and see flowsheet for medication details Assessment: Block success: full evaluation pending Events: patient tolerated procedure well with no complications us Kian Burroughs MD ANESTHESIA ORDERABLES Adeola l Result * PA AN PROCEDURE PLACEHOLDER (06/02/2024 2:07 PM MANAGER EDUCATION) Narrative Kian Burroughs MD - 06/02/2024 2:07 PM MANAGER EDUCATION Kian Burroughs MD 06/02/2024 2:07 PM Spinal Block Patient location: pre-op holding Reason for block: primary anesthetic Staff: Placed by: Anesthesiologist: Kian Burroughs MD Procedure prep: Preprocedure checklist: patient identified, procedure contraindications assessed, site marked, procedure consent, surgical consent, IV checked, risks, benefits and alternatives discussed, monitors and equipment checked and timeout performed Patient position: sitting Procedure performed while patient: sedate with meaningful contact Monitoring: oximetry, blood pressure and ECG Supplemental O2: nasal cannula Prep solution: chlorhexadine/alcohol PPE: sterile gloves, provider hat/mask and sterile drape Skin infiltrated with lidocaine 1%: yes Spinal: Approach: midline Introducer used: yes Location: L3-4 Spinal injection: CSF demonstrated, no aspiration of heme and no paresthesias noted Number of attempts: 1 Spinal Needle: Needle type: Karla Tunde (Karla Tunde) Needle gauge: 24 G Needle length: 9 cm Assessment: Sensory deficit - left: full eval pending Sensory deficit - right: full eval pending Events: patient tolerated procedure well with no complications Kian Burroughs MD ANESTHESIA ORDERABLES Adeola l Result * ABO/Rh (06/02/2024 1:03 PM MANAGER EDUCATION) [facility] ABO/Rh A Positive Blood 06/02/2024 1:03 PM MANAGER EDUCATION 06/02/2024 1:11 PM MANAGER EDUCATION Narrative [facility] - 06/02/2024 3:25 PM MANAGER EDUCATION Has the patient had Daratumumab or Isatuximab in the past 6 months?->Unknown Michele Begum NP LAB BLOOD BANK TEST ORDCindy ANNA Final Result [facility] [id number] [facility]. [place] [address] * Crossmatch (06/02/2024 1:03 PM MANAGER EDUCATION) Crossmatch Compatible [facility] Unit number for crossmatch [id number] [facility] Blood 06/02/2024 1:03 PM MANAGER EDUCATION 06/02/2024 1:11 PM MANAGER EDUCATION Giovani Sanchez MD LAB BLOOD BANK TEST ORDER FRENCH Final Result Performing Organization Address [facility] de Phone Number [facility] [address] [facility] [place] [address] * Antibody screen (06/02/2024 1:03 PM MANAGER EDUCATION) Laura, indirect, Gel Interpretation Negative ABSC Blood 06/02/2024 1:03 PM MANAGER EDUCATION 06/02/2024 1:11 PM MANAGER EDUCATION Narrative [facility] - 06/02/2024 3:25 PM MANAGER EDUCATION Has the patient had Daratumumab or Isatuximab in the past 6 months?->Unknown Michele Begum NP LAB BLOOD BANK TEST ORDE ALEXIVAN Final Result Performing Organization Address [facility] de Phone Number [facility] [address] [address] [facility] [place] [address] * TYPE AND SCREEN 14 DAY (05/31/2024 10:03 AM MANAGER EDUCATION) ABO Rh A Positive Laura, indirect Negative [facility] Blood 05/31/2024 10:0 3 AM MANAGER EDUCATION 05/31/2024 10:40 AM MANAGER EDUCATION Narrative [facility] - 05/31/2024 11:38 AM MANAGER EDUCATION Has the patient had Daratumumab or Isatuximab in the past 6 months?->Unknown Is this test being ordered in advance for a procedure?->Yes Expected date of procedure:->06/02/24 Has the patient been transfused in the past 3 months?->No Michele Begum NP LAB BLOOD BANK TEST ORDE RABLES Final Result Performing Organization Address City[facility] Co de Phone Number [facility] Department [place] [address] * eGFR (05/31/2024 10:03 AM MANAGER EDUCATION) Pathologist [facility] eGFR >90 >=60 mL/min/1. 73 m2 Comment: Interpretive Data Reference Interval Normal >/= 90 mL/min/1.73m2 Mildly decreased* 60 - 89 mL/min/1.73m2 Mildly to moderately decreased 45 - 59 mL/min/1.73m2 Moderately to severely decreased 30 - 44 mL/min/1.73m2 Severely decreased 15 - 29 mL/min/1.73m2 Kidney Failure < 15 mL/min/1.73m2 *Relative to young adult level Estimated glomerular filtration rate is determined by the 2020 CKD-EPI equation recommended by the National Kidney Foundation (A Unifying Approach to GFR Estimation: Recommendations of the NKF-ASK Task Force on Reassessing the Inclusion of Race in Diagnosing Kidney Disease, JASN 2020). The CKD-EPI equation should not be used for patients with unstable renal function and has not been validated in children and those over 70. Current interpretive data was last reviewed 2021. Blood 05/31/2024 10:0 3 AM MANAGER EDUCATION 05/31/2024 10:48 AM MANAGER EDUCATION us Giovani Sanchez MD LAB BLOOD ORDERABLES Adeola young Result [facility] Department [place] [address] * Differential, auto (05/31/2024 10:03 AM MANAGER EDUCATION) Neutrophil abs 3.7 1.5 - 6.5 K/cumm Imm gran abs 0.0 0.0 - 0.1 K/cumm [facility] Lymphocyte abs 1.2 0.8 - 3.3 K/cumm [facility] Monocyte abs 0.4 0.2 - 0.8 K/cumm [facility] Eosinophil abs 0.2 0.0 - 0.5 K/cumm [facility] Basophil abs 0.1 0.0 - 0.1 K/cumm [facility] Neutrophil pct 66.9 % [facility] Comment: Interpretive Data Percent cell count reference ranges are not reported, since discordance with absolute values may lead to misinterpretation of CBC data. Current Interpretive Data was last revised on 2017. Imm gran pct 0.4 % [facility] Comment: Interpretive Data Percent cell count reference ranges are not reported, since discordance with absolute values may lead to misinterpretation of CBC data. Current Interpretive Data was last revised on 2017. Lymphocyte pct 22.3 % [facility] Comment: Interpretive Data Percent cell count reference ranges are not reported, since discordance with absolute values may lead to misinterpretation of CBC data. Current Interpretive Data was last revised on 2017. Monocyte pct 6.6 % [facility] Comment: Interpretive Data Percent cell count reference ranges are not reported, since discordance with absolute values may lead to misinterpretation of CBC data. Current Interpretive Data was last revised on 2017. Eosinophil pct 2.9 % [facility] Comment: Interpretive Data Percent cell count reference ranges are not reported, since discordance with absolute values may lead to misinterpretation of CBC data. Current Interpretive Data was last revised on 2017. Basophil pct 0.9 % [facility] Comment: Interpretive Data Percent cell count reference ranges are not reported, since discordance with absolute values may lead to misinterpretation of CBC data. Current Interpretive Data was last revised on 2017. [id number]|2024-08-18 11:26:00|2024-08-18 11:25:00|XMS_ITS|BKG DAEMON|External Medical Summaries|[id number]|" Clinical Summary Created on: August 18, 2024 Roman Fletcher : 1955 Sex: Male Author Organization [facility] Address [address] [place] [address] Care Team Providers Care Shark Biologist Name Role Phone Angel La MD Primary Care Prov ider Allergies No known active allergies Medications lisinopriL (PRINIVIL,ZESTRIL ) 20 mg tabletIndications :hypertension Take 1 tablet (20 mg total) by mouth every morning 06/12/19 21 Active Eliquis 2.5 mg tabletIndications :Deep vein thrombosis (DVT) of lower extremity, unspecified chronicity, unspecified laterality, unspecified vein (HCC) TAKE 1 TABLET BY MOUTH EVERY 12 HOURS 60 tablet 11 01/03/20 21 Active Additional Information Patient taking differently: 2.5 mg oral 2 times daily, Indications: Venous Thrombosis, HX DVT LLE 2015, Informant: Self, Spouse/Significant Other, Reported on 06/02/2024 calcium carbonate (TUMS ORAL)Indications: dyspepsia Take 2 tablet/chew tab by mouth as needed (dyspepsia) Active cholecalciferol (VITAMIN D-3) 5,000 unit tabletIndications :Vitamin D Deficiency Take 1 tablet (5,000 Units total) by mouth every morning Active peg 400-propylene glycol (SYSTANE) 0.4-0.3 % ophthalmic solutionIndicatio ns:Dry Eye Administer 1 drop into both eyes 2 (two) times a day Active bismuth subsalicylate 525 mg/15 mL suspensionIndicat ions:GI UPSET Take 1 Capful by mouth as needed (GI UPSET) Active UNABLE TO FINDIndications:a nxiety Take 1 each by mouth as needed (Anxiety) Med Name: CBD oil Active acetaminophen (TYLENOL) 500 mg tablet Take 2 tablets (1,000 mg total) by mouth every 8 (eight) hours 90 tablet 06/03/19 25 Active senna-docusate (PERICOLACE) 8.6-50 mg Take 2 tablets by mouth 2 (two) times a day May increase to 4 tablets twice daily if needed. HOLD medication for diarrhea. 80 tablet 1 06/03/[address] (PROTONIX) 20 mg EC tablet Take 1 tablet (20 mg total) by mouth daily 30 tablet 06/03/19 25 Active meloxicam (MOBIC) 7.5 mg tablet Take 1 tablet (7.5 mg total) by mouth daily 30 tablet 06/03/19 25 Active oxyCODONE (ROXICODONE) 5 mg immediate release tabletIndications :Pain Take 1 tablet (5 mg total) by mouth every 4 (four) hours as needed for pain (breakthrough) 30 tablet 06/10/19 25 Active traMADoL (ULTRAM) 50 mg tabletIndications :Postoperative pain Take 1 tablet (50 mg total) by mouth every 8 (eight) hours as needed for pain 42 tablet 07/15/19 25 Active predniSONE (DELTASONE) 5 mg tabletIndications :Chronic pain of left knee Take 1 tablet (5 mg) by mouth daily 30 tablet 08/02/19 25 025 Active amoxicillin 500 mg tablet/capsuleInd ications:Prophyla xis, Medical TAKE 4 PILL 1 HOUR BEFORE DENTAL APPOINTMENT. 4 tablet/caps ule 2 08/13/19 25 Active amoxicillin 500 mg tablet/capsuleInd ications:Prophyla xis, Medical TAKE 4 PILL 1 HOUR BEFORE DENTAL APPOINTMENT. 4 tablet/caps ule 2 07/27/19 24 025 Discontinu ed(Reorder ) methylPREDNISolon e (MEDROL DOSEPACK) 4 mg Dosepack Take as directed on package 1 packet 07/26/19 25 025 Active Problems Problem Noted Date Diagnosed Date Primary osteoarthritis of left knee 06/02/2024 Alteration in skin integrity related to surgical incision 12/18/2022 Osteoarthritis of left knee, unspecified osteoarthritis type 07/08/2022 Deep vein thrombosis (DVT) of lower extremity Current use of meterman anticoagulation 021 Prostate cancer 05/24/2019 Overview (05/24/2019): Added automatically from request for surgery [id number] History of knee surgery 06/17/2016 Medication therapy continued 03/26/2016 DVT (deep venous thrombosis) 01/23/2016 Knee pain 02/05/2015 Osteoarthritis of knee 09/05/2010 Encounters Date Type Department Care Team Description 08/12/2024 Orders Only [facility] [address] [place] [address] Medical Office Building [address] [place] [phone] Giovani Sanchez MD Prophylactic antibiotic 07/27/2024 Telephone [facility] [address] [facility] Floor 6 [place] [phone] Nadege Brewer RN 07/25/2024 3:50 PM CDT Office Visit [facility] [address] [place] [address] Office [facility] [address] [place] [address] Giovani Sanchez MD Aftercare following left knee joint replacement surgery (Primary Dx) 07/25/2024 3:30 PM CDT - 07/25/2024 11:59 PM CDT Hospital Encounter [facility] [address] [place] [address] [address] [place] [phone] Aftercare following left knee joint replacement surgery Discharge Disposition: Discharge to home or self care 07/04/2024 1:20 PM CDT Office Visit [facility] [address] [place] [address] Office [facility] [address] [place] [address] Giovani Sanchez MD Aftercare following left knee joint replacement surgery (Primary Dx); Surgical follow-up care 07/04/2024 1:00 PM CDT - 07/04/2024 11:59 PM CDT Hospital Encounter [facility] [address] [place] [address] [address] [place] [phone] Aftercare following left knee joint replacement surgery Discharge Disposition: Discharge to home or self care 06/02/2024 3:35 PM MANAGER EDUCATION - 06/02/2024 5:15 PM MANAGER EDUCATION Surgery [facility] Operating Room [address] [address] [address] Giovani Sanchez MD ARTHROPLASTY TOTAL KNEE - DEPUY 06/02/2024 2:15 PM MANAGER EDUCATION Anesthesia Event [facility] Operating Room [address] [address] [address] Kian Burroughs MD Khodamoradi, Shahrdad, MD 06/02/2024 12:02 PM MANAGER EDUCATION - 06/03/2024 10:00 AM MANAGER EDUCATION Hospital Encounter [facility] [address] [address] [address] [address] Giovani Sanchez MD Primary osteoarthritis of left knee (Primary Dx); Chronic pain of left knee Discharge Disposition: Discharge to home or self care 05/31/2024 8:30 AM MANAGER EDUCATION Pre-Admission Testing [facility] [address] [place] [id number] Preoperative testing (Primary Dx); Primary osteoarthritis of left knee; Disorder of cartilage, unspecified 05/24/2024 Orders Only [facility] [address] [facility] Medical Office Building [address] [place] [phone] Giovani Sanchez MD from Last 3 Months Immunizations Immunization Administration Dates Next Due Influenza, Unspecified 12/14/2023 Moderna SARS-CoV-2 Monovalent Vaccination (12+ Y RS) 06/12/2020,05/15/2020 ZOSTER Recombinant 07/24/2023 Surgical History Surgery Date Site/Laterality Comments CHOLECYSTECTOMY 04/06/2014 - 04/05/2015 PARTIAL KNEE ARTHROPLASTY 07/05/2022 - 08/03/2022 Left PROSTATECTOMY 05/07/2019 - 06/04/2019 TOTAL KNEE ARTHROPLASTY 04/06/2016 - 04/05/2017 Right COLONOSCOPY last one 2020 Medical History Medical History Date Comments Personal history of other di seases of the circulatory system History of hypertension - (A dded by TW Conv) Acute embolism and thrombosis of vein Blood clot in vein - (Added by TW Conv) Personal history of other en docrine, nutritional and metabolic disease History of hyperchol esterolemia - (Added by TW Conv) Personal history of other di seases of the musculoskeletal system and connective tissue History of gout - (Added by TW Conv) Clotting disorder Hypertension Family History Medical History Relation Name Comments Arthritis Father Family history of arthritis - (Added by TW Conv) Cancer Father Family history of malignant neoplasm - (Added by TW Conv) Heart disease Father Family history of cardiac disorder - (Added by TW Conv) Hypertension Father Family history of hypertension - (Added by TW Conv) Diabetes Maternal Grandmother Family history of diabetes mellitus - (Added by TW Conv) Arthritis Mother Family history of arthritis - (Added by TW Conv) Hypertension Mother Family history of hypertension - (Added by TW Conv) Anesthesia problems Neg Hx Relation Name Status Comments Father Maternal Grandmother Mother Social History Tobacco Use Types Packs/Day Years Used Date Smoking Tobacco: Former Cigars 1994 Passive Smoke Exposure: Never Smokeless Tobacco: Former Chew Quit: 1988 Comments:1 cigar a day. Alcohol Use Standard Drinks/Week Comments Yes 21 (1 standard drink = 0.6 oz pu re alcohol) AUDIT-C Answer Date Recorded Q1: How often do you have a drink containing alcohol? 4 or more times a week 05/31/2024 Q2: How many drinks containi ng alcohol do you have on a typical day when you are drinking? 3 or 4 Q3: How often do you have si x or more drinks on one occasion? Monthly 05/31/2024 Personal Safety Answer Date Recorded Have you ever been in or are you currently in a harmful physical or emotional relationship or is someone making you feel afraid or unsafe? Denies 06/02/2024 Sex and Gender Information Value Date Recorded Sex Assigned at Not on file Legal Sex Male 9:30 AM MANAGER EDUCATION Gender Identity Male 06/14/2019 9:44 AM CDT Sexual Orientation Straight 06/14/2019 9: 44 AM CDT Obstetrics History Last Filed Vital Signs Vital Sign Reading Time Taken Comments Blood Pressure 127/54 06/03/2024 7:43 AM MANAGER EDUCATION Pulse 62 06/03/2024 7:43 AM MANAGER EDUCATION Temperature 36.8 C (98.3 F) 06/03/2024 7:43 AM MANAGER EDUCATION Respiratory Rate 16 06/03/2024 7:43 AM MANAGER EDUCATION Oxygen Saturation 95% 06/03/2024 7:43 AM MANAGER EDUCATION Inhaled Oxygen Concentration - - Weight 108.5 kg (239 lb 3.2 oz) 06/02/2024 1:00 PM MANAGER EDUCATION Height 180.3 cm (5' 11 ) 06/02/2024 1:00 PM MANAGER EDUCATION Body Mass Index 33.36 06/02/2024 1:00 PM MANAGER EDUCATION Plan of Treatment Health Maintenance Due Date Last Done Comments Colon Cancer Screening-Colonoscopy 1955 Depression Screening 1955 Hepatitis C Screening 1955 DTaP/Tdap/Td Vaccine (1 - Tdap) 02/02/1967 Hepatitis B Screening 02/02/1974 Pneumococcal vaccine 65+ (1 of 1 - PCV) 02/02/2006 Abdominal Aortic Aneurysm (A AA) Screen 02/02/2021 Well Visit 65+ 02/02/2021 Covid-19 Vaccine (4 - 2023-2 5 season) 2023 02/08/2021, 06/12/2020, 05/15/2020 Prostate Cancer Screening-PSA 11/04/2024, 11/04/2021, 05/20/2021, Additional history exists Fall Risk Assessment 06/03/2025 06/03/2024 Zoster Vaccine Completed 10/14/2023, 07/24/2023 Influenza Vaccine Completed 12/14/2023 Medical Devices Implanted Type Area Building Supervisor Device Identifier Shelf Expiration Date Model / Serial / Lot Knee Replacement Right: Knee [employer] Smartset Medium Viscosity Cement 40gm Bone Sterile 3122-040 - [id number] Implanted:Qty: 1 on 07/08/2022 by Giovani Sanchez MD at [facility] Left: Knee [employer] 12/05/2023 3122-040 / / [id number] [employer] Insert Tibial Knee Fixed Lm Posterior Stabilized Attune 7mm Size 7 Polyethylene [id number] - [id number] Implanted:Qty: 1 on 06/02/2024 at [facility] Left: Knee [employer] 04/05/2032 [id number] / / [id number] [employer] Smartset Medium Viscosity Cement 40gm Bone Gentamicin [id number] - [id number] Implanted:Qty: 1 on 06/02/2024 at [facility] Left: Knee [employer] 11/03/2025 [id number] / / [id number] [employer] Smartset Medium Viscosity Cement 40gm Bone Sterile 3122-040 - [id number] Implanted:Qty: 1 on 06/02/2024 at [facility] Left: Knee [employer] 10/03/2025 3122-040 / / [id number] [employer] Attune S+ Cement Fix Bearing Knee 8 Baseplate Tibial [id number] - [id number] Implanted:Qty: 1 on 06/02/2024 at [facility] Left: Knee [employer] 03/05/2034 [id number] / / [id number] [employer] Attune Cemented Cruciate Retaining Knee Left 7 Component Femoral [id number] - [id number] Implanted:Qty: 1 on 06/02/2024 at [facility] Left: Knee [employer] 11/03/2032 [id number] / / [id number] Explanted Type Area Building Supervisor Device Identifier Shelf Expiration Date Model / Serial / Lot [employer] 4mm 110mm Pin Fixation Sterile [id number] - [id number] Explanted:Qty: 1 on 07/08/2022 by Giovani Sanchez MD at [facility] Left: Knee [employer] [id number] 05/05/2027 [id number] / / [id number] Description:NOT AN IMPLANT, PROVISIONAL USE ONLY [employer] 4mm 140mm Knee Straight Pin Fixation Sterile 560566 - [id number] Explanted:Qty: 1 on 07/08/2022 at [facility] Left: Knee [employer] [id number] 04/25/2027 [id number] / / [id number] Description:NOT AN IMPLANT, PROVISIONAL USE ONLY [employer] Insert Peter Tibial X3 Onlay Size 5 X 8mm Unicompartmental Knee Strl 695808-7-S - [id number] Implanted:Qty: 1 on 07/08/2022 by Giovani Sanchez MD at [facility] Explanted:Qty: 1 on 06/02/2024 by Giovani Sanchez MD at [facility] Left: Knee [employer] [id number] 05/08/2027 601067-3- E / / [id number] [employer] Cmpnt Fem 5 Std Knee Condyle Left Medial Right Lat [id number] - [id number] - [id number] Implanted:Qty: 1 on 07/08/2022 by Giovani Sanchez MD at [facility] Explanted:Qty: 1 on 06/02/2024 by Giovani Sanchez MD at [facility] Left: Knee [employer] [id number] 01/31/2027 [id number] / [id number] / [id number] [employer] Bsplt Tibial 5 Knee Left Medial Right Lat Mck System [id number] - [id number] - [id number] Implanted:Qty: 1 on 07/08/2022 by Giovani Sanchez MD at [facility] Explanted:Qty: 1 on 06/02/2024 by Giovani Sanchez MD at [facility] Left: Knee [employer] [id number] 03/27/2027 [id number] / [id number] / [id number] Procedures Procedure Name Priority Date/Time Associated Diagnosis Comments XR KNEE LEFT 3 VIEWS Schedule Routine, Read Routine (OP Routine) 07/25/2024 3:59 PM CDT Aftercare following left knee joint replacement surgery XR KNEE LEFT 4 OR MORE VIEWS Schedule Routine, Read Routine (OP Routine) 07/04/2024 1:39 PM CDT Aftercare following left knee joint replacement surgery XR KNEE LEFT 1 OR 2 VIEWS ED Urgent/IP Urgent 06/02/2024 4:13 PM MANAGER EDUCATION PREPARE RBC Timed 06/02/2024 3:28 PM MANAGER EDUCATION ARTHROPLASTY TOTAL KNEE - DEPUY 06/02/2024 2:14 PM MANAGER EDUCATION Primary osteoarthritis of left knee PA AN PROCEDURE PLACEHOLDER Routine 06/02/2024 2:08 PM MANAGER EDUCATION PA AN PROCEDURE PLACEHOLDER Routine 06/02/2024 2:07 PM MANAGER EDUCATION PA AN PROCEDURE PLACEHOLDER Routine 06/02/2024 2:07 PM MANAGER EDUCATION PA AN PROCEDURE PLACEHOLDER Routine 06/02/2024 2:07 PM MANAGER EDUCATION PA AN PROCEDURE PLACEHOLDER Routine 06/02/2024 2:07 PM MANAGER EDUCATION CROSSMATCH STAT 06/02/2024 1:03 PM MANAGER EDUCATION ANTIBODY SCREEN STAT 06/02/2024 1:03 PM MANAGER EDUCATION ABO/RH STAT 06/02/2024 1:03 PM MANAGER EDUCATION TYPE AND SCREEN STAT 06/02/2024 1:03 PM MANAGER EDUCATION EGFR Routine 05/31/2024 10:03 AM MANAGER EDUCATION Primary osteoarthritis of left knee DIFFERENTIAL AUTO Routine 05/31/2024 10:03 AM MANAGER EDUCATION Preoperative testing VITAMIN D 25 HYDROXY Routine 05/31/2024 10:03 AM MANAGER EDUCATION Primary osteoarthritis of left knee Disorder of cartilage, unspecified COMPREHENSIVE METABOLIC PANEL Routine 05/31/2024 10:03 AM MANAGER EDUCATION Primary osteoarthritis of left knee CBC WITH AUTO DIFFERENTIAL Routine 05/31/2024 10:03 AM MANAGER EDUCATION Preoperative testing TYPE AND SCREEN 14 DAY Routine 05/31/2024 10:03 AM MANAGER EDUCATION Preoperative testing PSA SCREEN Routine 11/04/2022 7:55 AM CDT Malignant neoplasm of prostate (HCC) from Last 3 Months or Most Recently Relevant to Health Maintenance Results * XR Knee Left 3 Views (07/25/2024 3:59 PM CDT) Anatomical Region Laterality Modality Lower Extremities, Knee Left Computed Radiography 07/25/2024 4:09 PM CDT Impressions 07/25/2024 4:09 PM CDT 2 component left knee arthroplasty in near-anatomic position. Electronically signed by: Rodolfo Gomez M.D. Narrative 07/25/2024 4:09 PM CDT EXAMINATION: XR KNEE LEFT 3 VIEWS HISTORY: Left knee osteoarthritis FINDINGS: 3 views of the left knee were performed with comparison made to 07/04/2024. There is a 2 component knee arthroplasty in near-anatomic position. There is no periprosthetic lucency or fracture. There is an effusion and anterior soft tissue swelling. Procedure Note Rodolfo Gomez MD PhD - 07/25/2024 EXAMINATION: XR KNEE LEFT 3 VIEWS HISTORY: Left knee osteoarthritis FINDINGS: 3 views of the left knee were performed with comparison made to 07/04/2024. There is a 2 component knee arthroplasty in near-anatomic position. There is no periprosthetic lucency or fracture. There is an effusion and anterior soft tissue swelling. IMPRESSION: 2 component left knee arthroplasty in near-anatomic position. Electronically signed by: Rodolfo Gomez M.D. Giovani Sanchez MD IMG XR PROCEDURES Final R esult * XR Knee Left 4 or More Views (07/04/2024 1:39 PM CDT) Anatomical Region Laterality Modality Lower Extremities, Knee Left Computed Radiography 07/04/2024 2:52 PM CDT Impressions 07/04/2024 2:52 PM CDT 2 component left knee arthroplasty in unchanged, near-anatomic position with mild mechanical varus. Electronically signed by: Jhony Torres M.D. Narrative 07/04/2024 2:52 PM CDT EXAMINATION: XR KNEE LEFT 4 OR MORE VIEWS HISTORY: Left knee arthroplasty follow COMPARISON: 06/02/2023 FINDINGS: Again seen is a left pneumonia is seen in unchanged, near anatomic position. Soft tissue gas has resolved. No periprosthetic fracture component migration. There is diffuse soft tissue swelling and a knee effusion. On the right, there is a total knee arthropathy. Mechanical varus on the left. Neutral mechanical axis on the right. Procedure Note Jhony Torres MD - 07/04/2024 EXAMINATION: XR KNEE LEFT 4 OR MORE VIEWS HISTORY: Left knee arthroplasty follow COMPARISON: 06/02/2023 FINDINGS: Again seen is a left pneumonia is seen in unchanged, near anatomic position. Soft tissue gas has resolved. No periprosthetic fracture component migration. There is diffuse soft tissue swelling and a knee effusion. On the right, there is a total knee arthropathy. Mechanical varus on the left. Neutral mechanical axis on the right. IMPRESSION: 2 component left knee arthroplasty in unchanged, near-anatomic position with mild mechanical varus. Electronically signed by: Jhony Torres M.D. Giovani Sanchez MD IMG XR PROCEDURES Final R esult * XR Knee Left 1 or 2 View (06/02/2024 4:13 PM MANAGER EDUCATION) Anatomical Region Laterality Modality Lower Extremities, Knee Left Computed Radiography 06/02/2024 4:21 PM MANAGER EDUCATION Impressions 06/02/2024 4:21 PM MANAGER EDUCATION New two-component left knee arthroplasty in expected position. Electronically signed by: Edu Martin D.O. Narrative 06/02/2024 4:21 PM MANAGER EDUCATION EXAMINATION: XR KNEE LEFT 1 OR 2 VIEWS HISTORY: postoperative care COMPARISON: Radiographs 05/16/2024 FINDINGS: Interval postoperative changes of two-component knee arthroplasty placement. Intact hardware in expected position. Postoperative soft tissue and intra-articular gas. No displaced fracture. Procedure Note Edu Martin, DO - 06/02/2024 EXAMINATION: XR KNEE LEFT 1 OR 2 VIEWS HISTORY: postoperative care COMPARISON: Radiographs 05/16/2024 FINDINGS: Interval postoperative changes of two-component knee arthroplasty placement. Intact hardware in expected position. Postoperative soft tissue and intra-articular gas. No displaced fracture. IMPRESSION: New two-component left knee arthroplasty in expected position. Electronically signed by: Edu Martin D.O. Colin Abad MD IMG XR PROCEDURES Fi nal Result * Prepare RBC: 1 Units (06/02/2024 3:28 PM MANAGER EDUCATION) Units requested 1 Units requested Ready [facility] Blood 06/02/2024 3:28 PM MANAGER EDUCATION 06/02/2024 3:28 PM MANAGER EDUCATION Narrative [facility] - 06/02/2024 3:28 PM MANAGER EDUCATION Specify Procedure:->TKA revision Are special requirements needed? (All products are leukoreduced and CMV- safe)->No Michele Begum NP BLOOD BANK PRODUCT ORDER FRENCH Final Result [facility] [id number] [facility] [address] * PA AN PROCEDURE PLACEHOLDER (06/02/2024 2:08 PM MANAGER EDUCATION) Kian Teresa MD - 06/02/2024 2:08 PM MANAGER EDUCATION Kian Burroughs MD 06/02/2024 2:08 PM Peripheral Block Patient location during procedure: pre-op holding Reason for block: post-op pain management per surgeon request Ultrasound image in chart or stored: yes Block type: single shot Laterality: left Block type: vastus intermedius nerve block Procedure prep: Preprocedure checklist: patient identified, procedure contraindications assessed, site marked, procedure consent, surgical consent, IV checked, risks, benefits and alternatives discussed, monitors and equipment checked and timeout performed Patient position: supine Procedure performed while patient: sedate with meaningful contact Monitoring: oximetry, ECG and blood pressure Supplemental O2: nasal cannula Prep solution: chlorhexidine/alcohol PPE: provider hat/mask and sterile probe cover and gel Peripheral nerve block: Technique: ultrasound guided Needle type: short-bevel and echogenic Needle gauge: 21 G Needle length: 80 mm Injection assessment: injection made incrementally with constant monitoring, negative aspiration for heme, no paresthesias noted, normal resistance to injection and see flowsheet for medication details Assessment: Block success: full evaluation pending Events: patient tolerated procedure well with no complications Result Replaced By [facility] us Kian Burroughs MD ANESTHESIA ORDERABLES Adeola l Result * PA AN PROCEDURE PLACEHOLDER (06/02/2024 2:07 PM MANAGER EDUCATION) Kian Teresa MD - 06/02/2024 2:07 PM MANAGER EDUCATION Kian Burroughs MD 06/02/2024 2:07 PM Peripheral Block Patient location during procedure: pre-op holding Reason for block: post-op pain management per surgeon request Ultrasound image in chart or stored: yes Block type: single shot Laterality: left Block type: genicular nerve block Staff: Placed by: Anesthesiologist: Kian Burroughs MD Procedure prep: Preprocedure checklist: patient identified, procedure contraindications assessed, site marked, procedure consent, surgical consent, IV checked, risks, benefits and alternatives discussed, monitors and equipment checked and timeout performed Patient position: supine Procedure performed while patient: sedate with meaningful contact Monitoring: oximetry, ECG and blood pressure Supplemental O2: nasal cannula Prep solution: chlorhexidine/alcohol PPE: provider hat/mask and sterile probe cover and gel Peripheral nerve block: Technique: ultrasound guided Needle type: short-bevel and echogenic Needle gauge: 21 G Needle length: 80 mm Injection assessment: injection made incrementally with constant monitoring, negative aspiration for heme, no paresthesias noted, normal resistance to injection and see flowsheet for medication details Assessment: Block success: full evaluation pending Events: patient tolerated procedure well with no complications Additional comments: (Superior Medial, Superior Lateral, Inferior Medial genicular nerves) Kian Burroughs MD ANESTHESIA ORDERABLES Adeola l Result * PA AN PROCEDURE PLACEHOLDER (06/02/2024 2:07 PM MANAGER EDUCATION) Narrative Kian Burroughs MD - 06/02/2024 2:07 PM MANAGER EDUCATION Kian Burroughs MD 06/02/2024 2:07 PM Peripheral Block Patient location during procedure: pre-op holding Reason for block: post-op pain management per surgeon request Ultrasound image in chart or stored: yes Block type: single shot Laterality: left Block type: IPACK Staff: Placed by: Anesthesiologist: Kian Burroughs MD Procedure prep: Preprocedure checklist: patient identified, procedure contraindications assessed, site marked, procedure consent, surgical consent, IV checked, risks, benefits and alternatives discussed, monitors and equipment checked and timeout performed Patient position: supine Procedure performed while patient: sedate with meaningful contact Monitoring: oximetry, ECG and blood pressure Supplemental O2: nasal cannula Prep solution: chlorhexidine/alcohol PPE: provider hat/mask and sterile probe cover and gel Peripheral nerve block: Technique: ultrasound guided Needle type: short-bevel and echogenic Needle gauge: 21 G Needle length: 80 mm Injection assessment: injection made incrementally with constant monitoring, negative aspiration for heme, no paresthesias noted, normal resistance to injection and see flowsheet for medication details Assessment: Block success: full evaluation pending Events: patient tolerated procedure well with no complications Result [facility] Kian Burroughs MD ANESTHESIA ORDERABLES Adeola l Result * PA AN PROCEDURE PLACEHOLDER (06/02/2024 2:07 PM MANAGER EDUCATION) Narrative Kian Burroughs MD - 06/02/2024 2:07 PM MANAGER EDUCATION Kian Burroughs MD 06/02/2024 2:07 PM Peripheral Block Patient location during procedure: pre-op holding Reason for block: post-op pain management per surgeon request Ultrasound image in chart or stored: yes Block type: single shot Laterality: left Block type: saphenous nerve block - subsartorial approach Staff: Placed by: Anesthesiologist: Kian Burroughs MD Procedure prep: Preprocedure checklist: patient identified, procedure contraindications assessed, site marked, procedure consent, surgical consent, IV checked, risks, benefits and alternatives discussed, monitors and equipment checked and timeout performed Patient position: supine Procedure performed while patient: sedate with meaningful contact Monitoring: ECG, blood pressure and oximetry Supplemental O2: nasal cannula Prep solution: chlorhexidine/alcohol PPE: provider hat/mask and sterile probe cover and gel Peripheral nerve block: Technique: ultrasound guided Needle type: short-bevel and echogenic Needle gauge: 21 G Needle length: 80 mm Injection assessment: injection made incrementally with constant monitoring, local visualized surrounding nerve on ultrasound, negative aspiration for heme, no paresthesias noted, normal resistance to injection and see flowsheet for medication details Assessment: Block success: full evaluation pending Events: patient tolerated procedure well with no complications Result [facility] Kian Burroughs MD ANESTHESIA ORDERABLES Adeola l Result * PA AN PROCEDURE PLACEHOLDER (06/02/2024 2:07 PM MANAGER EDUCATION) Narrative Kian Burroughs MD - 06/02/2024 2:07 PM MANAGER EDUCATION Kian Burroughs MD 06/02/2024 2:07 PM Spinal Block Patient location: pre-op holding Reason for block: primary anesthetic Staff: Placed by: Anesthesiologist: Kian Burroughs MD Procedure prep: Preprocedure checklist: patient identified, procedure contraindications assessed, site marked, procedure consent, surgical consent, IV checked, risks, benefits and alternatives discussed, monitors and equipment checked and timeout performed Patient position: sitting Procedure performed while patient: sedate with meaningful contact Monitoring: oximetry, blood pressure and ECG Supplemental O2: nasal cannula Prep solution: chlorhexadine/alcohol PPE: sterile gloves, provider hat/mask and sterile drape Skin infiltrated with lidocaine 1%: yes Spinal: Approach: midline Introducer used: yes Location: L3-4 Spinal injection: CSF demonstrated, no aspiration of heme and no paresthesias noted Number of attempts: 1 Spinal Needle: Needle type: Karla Tunde (Karla Tunde) Needle gauge: 24 G Needle length: 9 cm Assessment: Sensory deficit - left: full eval pending Sensory deficit - right: full eval pending Events: patient tolerated procedure well with no complications Kian Burroughs MD ANESTHESIA ORDERABLES Adeola l Result * ABO/Rh (06/02/2024 1:03 PM MANAGER EDUCATION) ABO/Rh A Positive Blood 06/02/2024 1:03 PM MANAGER EDUCATION 06/02/2024 1:11 PM MANAGER EDUCATION Narrative [facility] - 06/02/2024 3:25 PM MANAGER EDUCATION Has the patient had Daratumumab or Isatuximab in the past 6 months?->Unknown Michele Begum NP LAB BLOOD BANK TEST ORDE WILFRIDO Final Result Performing Organization Address [facility] Co de Phone Number [facility] [id number] [facility] Department [place] [address] * Crossmatch (06/02/2024 1:03 PM MANAGER EDUCATION) Crossmatch Compatible [facility] Unit number for crossmatch [id number] [facility] Blood 06/02/2024 1:03 PM MANAGER EDUCATION 06/02/2024 1:11 PM MANAGER EDUCATION Giovani Sanchez MD LAB BLOOD BANK TEST ORDER FRENCH Final Result Performing Organization Address [facility] Co de Phone Number [facility] [id number] [facility]. [place] [address] * Antibody screen (06/02/2024 1:03 PM MANAGER EDUCATION) Pathologist [facility] Laura, indirect, Gel Interpretation Negative ABSC Blood 06/02/2024 1:03 PM MANAGER EDUCATION 06/02/2024 1:11 PM MANAGER EDUCATION [facility]ative [facility] 06/02/2024 3:25 PM MANAGER EDUCATION Has the patient had Daratumumab or Isatuximab in the past 6 months?->Unknown Michele Begum NP LAB BLOOD BANK TEST ORDE WILFRIDO Final Result Performing Organization Address [facility] de Phone Number [facility] [id number] [facility]. [place] [address] * TYPE AND SCREEN 14 DAY (05/31/2024 10:03 AM MANAGER EDUCATION) Pathologist [facility] ABO Rh A Positive Laura, indirect Negative [facility] Blood 05/31/2024 10:0 3 AM MANAGER EDUCATION 05/31/2024 10:40 AM MANAGER EDUCATION Narrative [facility] - 05/31/2024 11:38 AM MANAGER EDUCATION Has the patient had Daratumumab or Isatuximab in the past 6 months?->Unknown Is this test being ordered in advance for a procedure?->Yes Expected date of procedure:->06/02/24 Has the patient been transfused in the past 3 months?->No Michele Begum NP LAB BLOOD BANK TEST ORDE WILFRIDO Final Result Performing Organization Address [facility] Co de Phone Number [facility] [place] [address] * eGFR (05/31/2024 10:03 AM MANAGER EDUCATION) Pathologist [facility] eGFR >90 >=60 mL/min/1. 73 m2 Comment: Interpretive Data Reference Interval Normal >/= 90 mL/min/1.73m2 Mildly decreased* 60 - 89 mL/min/1.73m2 Mildly to moderately decreased 45 - 59 mL/min/1.73m2 Moderately to severely decreased 30 - 44 mL/min/1.73m2 Severely decreased 15 - 29 mL/min/1.73m2 Kidney Failure < 15 mL/min/1.73m2 *Relative to young adult level Estimated glomerular filtration rate is determined by the 2020 CKD-EPI equation recommended by the National [employer] (A Unifying Approach to GFR Estimation: Recommendations of the NKF-ASK Task Force on Reassessing the Inclusion of Race in Diagnosing Kidney Disease, JASN 2020). The CKD-EPI equation should not be used for patients with unstable renal function and has not been validated in children and those over 70. Current interpretive data was l
--- OUTSIDE RECORDS SUMMARY | 2024-08-18 11:26 | XMS_ITS | Clinical Summary ---
Author Organization [facility] Address [address] [place] [id number] Care Team Providers Care Unbundler Name Role Phone Unavailable Primary Care Provider Unavailabl e Social History Tobacco Use Types Packs/Day Years Used Date Smoking Tobacco: Never Assessed Sex and Gender Information Value Date Recorded Sex Assigned at Not on file Legal Sex Male 10:26 PM CDT Gender Identity Not on file Sexual Orientation Not on file Plan of Treatment Health Maintenance Due Date Last Done Comments Colorectal Cancer Screening Colonoscopy (10 Years) 1955 Hepatitis C 02/02/1974 DTaP, Tdap and Td Vaccines ( 1 - Tdap) 02/02/1975 Pneumococcal Vaccine: 50+ Ye ars (1 of 1 - PCV) 02/02/2006 Zoster Vaccines (1 of 2) 02/02/2006 COVID-19 Vaccine ( - 2023-2 5 season) 2023 RSV Immunization or 60+ Years (1 - 1-dose 75+ series) 02/02/2031 Meningococcal B Vaccine Aged Out No l onger eligible based on patient's age to complete this topic Meningococcal Vaccine Aged Out No brigid dorita eligible based on patient's age to complete this topic RSV Immunizations Under 20 Months Aged Out No longer eligible based on patient's age to complete this topic
== END 2024-08-18 11:22 | disposition home or self-care (01) ==
PROVIDERS: PCP Family Medicine Adolescent Medicine; Visit Provider Nurse Practitioner Family
DX: M79.662 Pain in left lower leg (principal); I82.402 Acute embolism and thrombosis of unspecified deep veins of left lower extremity
CPT/HCPCS: 93971